=== PATIENT | female | born 1965 | race Caucasian/White ===

== ENCOUNTER → 2020-10-06 14:57 | Outpatient (CLI) | payer OTHER, SELFPAY ==
--- NOTE | ~2020-10-06 | MM_ITS ---
EXAMINATION: MM screening [facility] BI w dulce HISTORY: Screening mammogram TECHNIQUE: Craniocaudal and mediolateral oblique 3-D tomosynthesis images were obtained and synthetic 2-D images were generated. CAD analysis was submitted and interpreted. COMPARISON: 02/16/2017, 09/24/2015, 09/22/2015 BREAST PARENCHYMAL COMPOSITION: There are scattered areas of fibroglandular density. FINDINGS: There is no evidence of suspicious mass, calcification, or architectural distortion to sugg est malignancy in either breast. There has been no suspicious interval change. IMPRESSION: 1. No mammographic evidence of malignancy. 2. Recommend routine screening mammography in one year. BI-RADS Category 1: Negative Reviewed, dictated and finalized at location A. [employer]
== END ==
PROVIDERS: PCP Internal Medicine; Visit Provider Obstetrics & Gynecology
DX: Z12.31 Encounter for screening mammogram for malignant neoplasm of breast (principal)
CPT/HCPCS: 77063; 77067

== ENCOUNTER → 2021-01-14 02:24 | Outpatient (CLI) | payer OTHER, SELFPAY ==
[2021-01-14 18:15] LABS: SARS-CoV-2 RNA PCR Negative
== END ==
PROVIDERS: PCP Nurse Practitioner Obstetrics & Gynecology; Visit Provider Internal Medicine Gastroenterology
DX: Z01.812 Encounter for preprocedural laboratory examination (principal); Z20.822 Contact with and (suspected) exposure to COVID-19
CPT/HCPCS: C9803; U0003; U0005

== ENCOUNTER 2021-01-17 00:40 | Day surgery (SDC) | payer OTHER, SELFPAY ==
[2021-01-06 13:54] VITALS: BMI 25.8
[2021-01-17 06:47] VITALS: BP 138/83; PULSE 75; RESP 18; TEMP 35.9; O2SAT 100
[2021-01-17] MEDS: LACTATED RINGERS 1,000 ML 150 ML IV CONT (06:52)
--- NOTE | 2021-01-17 07:49 | PM.HPGS ---
History of Present Illness History of Present Illness Consent: Risks, benefits, and alternatives have been discussed and questions answered. Patient agrees to proceed with procedure. Chief complaint: neoplasm screening Narrative: Beena Song is a 55 year old female here for screening colonoscopy Review of Systems Constitutional: Constitutional: Denies headache(s) and Denies weakness Eyes: Eyes: Denies blurry vision ENT: Reports Normal hearing present, Denies headache(s) and Denies neck pain Cardiovascular: Cardiovascular: Denies chest pain and Denies dyspnea Respiratory: Respiratory: Denies dyspnea Gastrointestinal: Gastrointestinal: Reports no additional gastrointestinal complaints Genitourinary: Genitourinary: Denies dysuria Musculoskeletal: Musculoskeletal: Denies neck pain Integumentary/Breasts: Skin/Breast: Denies dry skin Neurologic: Reports Normal hearing present, Denies headache(s) and Denies weakness Psychiatric: Psychiatric: Denies anxiety Endocrine: Endocrine: Denies change in body appearance Hematologic/Lymphatic: Hematologic/Lymphatic: Denies easy bleeding Allergic/Immunologic: Allergic/Immunologic: Denies urticaria [facility] Past Medical History Medical History (Updated 01/17/21 @ 07:49 by Vitaliy Pollard MD) Colon cancer screening Family History Family History Mother Patient's mother is Acute myocardial infarction Other Hypertension Social History Social History Smoking status: Never smoker Second hand tobacco smoke exposure: No Alcohol intake: never Substance use: never Substance use type: does not use Living arrangements: with family Spiritual care concerns: No Meds Home Medications and Allergies Home Medications Medication Instructions Recorded Confirmed Type Lactobacillus acidophilus and 1 cap PO DAILY 12/01/19 01/06/21 History rhamnosus 10 billion cell capsule aspirin 81 mg tablet,delayed 81 mg PO DAILY 12/01/19 01/06/21 History release cetirizine 10 mg tablet 10 mg PO DAILY 12/01/19 01/06/21 History cholecalciferol (vitamin D3) 50 50 mcg PO DAILY 12/01/19 01/06/21 History mcg (2,000 unit) capsule multivitamin 1 tablet PO DAILY 12/01/19 01/06/21 History epinephrine 0.3 mg/0.3 mL 0.3 mg IM ONCE #2 each 12/30/19 01/06/21 Rx injection, auto-injector estradiol 0.5 mg tablet 0.5 mg PO DAILY 12/06/20 01/06/21 History Calcium 600 + D(3) 1 cap PO DAILY 01/06/21 01/06/21 History Glucosamine Chondroitin 1,500 mg PO DAILY 01/06/21 01/06/21 History Natural Vitamin E 1 cap PO DAILY 01/06/21 01/06/21 History flaxseed oil 1,300 mg PO DAILY 01/06/21 01/06/21 History vitamin B complex 1 cap PO DAILY 01/06/21 01/06/21 History Allergies Allergy/AdvReac Type Severity Reaction Status Date / Time black pepper Allergy Severe Dyspnea / Verified 01/17/21 06:44 SOB pepper (genus Capsicum) Allergy Severe Dyspnea / Verified 01/17/21 06:44 SOB codeine Allergy Intermediate Vomiting Verified 01/17/21 06:44 Vital Signs Vital Signs - 24 hr 01/17/21 06:47 Temperature 96.6 F L Pulse Rate 75 Respiratory Rate 18 Blood Pressure 138/83 Pulse Oximetry 100 Exam Const: General: comfortable and no acute distress HENMT: General nose exam: Normal nares present Eyes: General: appearance normal, both eyes and all related structures Neck: Neck: no JVD Resp: Auscultation: clear to auscultation bilaterally Cardio: Rate: regular rate Rhythm: regular rhythm GI: Inspection: non-distended GI Palp: Yes Soft to palpation Skin: General skin exam: normal color Neuro: General: gait normal Speech: normal speech Extrem: General: normal to inspection Psych: Mental Status: mental status grossly normal Assessment and Plan Assessment and plan (1) Colon cancer screening: Code(s): Z12.11 -
--- NOTE | 2021-01-17 07:50 | WPDANESEPPF ---
Anes - Initial Pre Proc Eval Procedure: Operation Date: 01/17/21 08:00 Proposed Procedures p Screening Colonoscopy - Vitaliy Pollard MD Date/Time: 01/17/21 07:50 Surgeon: Vitaliy Pollard MD Pre Op Diagnosis: neoplasm screening Patient Data Age: 55 Gender: F Height: 1.57 m Weight: 66.9 kg Last Vital Signs Temp 35.9 C L 01/17/21 06:47 Pulse 75 01/17/21 06:47 Resp 18 01/17/21 06:47 BP 138/83 01/17/21 06:47 Pulse Ox 100 01/17/21 06:47 Allergies Allergy/AdvReac Type Severity Reaction Status Date / Time black pepper Allergy Severe Dyspnea / Verified 01/17/21 06:44 SOB pepper (genus Capsicum) Allergy Severe Dyspnea / Verified 01/17/21 06:44 SOB codeine Allergy Intermediate Vomiting Verified 01/17/21 06:44 Home Medications Medication Instructions Recorded Confirmed Type Lactobacillus acidophilus and 1 cap PO DAILY 12/01/19 01/06/21 History rhamnosus 10 billion cell capsule aspirin 81 mg tablet,delayed 81 mg PO DAILY 12/01/19 01/06/21 History release cetirizine 10 mg tablet 10 mg PO DAILY 12/01/19 01/06/21 History cholecalciferol (vitamin D3) 50 50 mcg PO DAILY 12/01/19 01/06/21 History mcg (2,000 unit) capsule multivitamin 1 tablet PO DAILY 12/01/19 01/06/21 History epinephrine 0.3 mg/0.3 mL 0.3 mg IM ONCE #2 each 12/30/19 01/06/21 Rx injection, auto-injector estradiol 0.5 mg tablet 0.5 mg PO DAILY 12/06/20 01/06/21 History Calcium 600 + D(3) 1 cap PO DAILY 01/06/21 01/06/21 History Glucosamine Chondroitin 1,500 mg PO DAILY 01/06/21 01/06/21 History Natural Vitamin E 1 cap PO DAILY 01/06/21 01/06/21 History flaxseed oil 1,300 mg PO DAILY 01/06/21 01/06/21 History vitamin B complex 1 cap PO DAILY 01/06/21 01/06/21 History Patient hx anesthesia problems: none Family hx anesthesia problems: none PMFSH Past Medical History Medical History (Updated 01/17/21 @ 07:49 by Vitaliy Pollard MD) Colon cancer screening Family History Family History Mother Patient's mother is Acute myocardial infarction Other Hypertension Social History Social History Smoking status: Never smoker Second hand tobacco smoke exposure: No Alcohol intake: never Substance use: never Substance use type: does not use Living arrangements: with family Spiritual care concerns: No Anes - Eval Final PreProcedure Day of Procedure 01/17/21 07:50 Patient weight: overweight Heart: regular rate and rhythm Lungs: clear to auscultation and normal air movement Airway: Mallampati scale class II Neurological: alert and oriented Last oral intake: >/= 8 hours ASA classification: II Emergent: no Anesthetic plan: proceed Anesthesia type and monitoring: general GIVS Informed Consent: The patient's anesthetic plan and its attendant risks and benefits were discussed with the patient/family/POA. Questions were solicited and answers provided to the satisfaction of the patient/family/POA.
[2021-01-17 08:15] VITALS: BP 87/49; PULSE 71; RESP 19; O2SAT 95
[2021-01-17 08:25] VITALS: BP 95/54; PULSE 68; RESP 20; O2SAT 96
[2021-01-17 08:35] VITALS: BP 103/60; PULSE 68; RESP 17; O2SAT 97
== END 2021-01-17 08:58 | disposition home or self-care (01) ==
PROVIDERS: PCP Internal Medicine; Visit Provider Internal Medicine Gastroenterology
PROC: 0DJD8ZZ Inspection of Lower Intestinal Tract, Via Natural or Artificial Opening Endoscopic (ICD-10-PCS; CPT 45378; principal; 2021-01-17 08:00)
DX: Z12.11 Encounter for screening for malignant neoplasm of colon (principal); K57.30 Diverticulosis of large intestine without perforation or abscess without bleeding; Z79.82 Long term (current) use of aspirin
CPT/HCPCS: 45378; C9803; J2704; J7120; U0003; U0005

== ENCOUNTER → 2021-01-28 10:42 | Outpatient (CLI) | payer OTHER, SELFPAY ==
--- NOTE | ~2021-01-28 | XR_ITS ---
EXAMINATION: XR abdomen/kub 1V EXAM DATE: 01/28/2021 11:05 INDICATION: intrauterine device check. TECHNIQUE: Frontal projection(s) of the abdomen for interpretation, frontal projection pelvis. FINDINGS: There are cholecystectomy clips. There is expected amount of colonic stool and gas. No s mall bowel dilation, nonobstructive bowel gas pattern. Left mid abdominal calcification probably too far lateral to be nephrolithiasis. There is no organomegaly suspected. The bones are unremarkable . IMPRESSION: No IUD identified in abdomen or pelvis. Reviewed, dictated and finalized at location B.
--- NOTE | ~2021-01-28 | XR_ITS ---
EXAMINATION: XR chest 1V 01/28/2021 11:05 INDICATION: Dyspnea PROCEDURE: PA view of the chest COMPARISON: 12/27/2015 FINDINGS: The lungs are clear. The cardiomediastinal silhouette is within normal limits. There are no pleural effusions. There is no pneumothorax suspected. IMPRESSION: 1: NO ACUTE CARDIOPULMONARY DISEASE. Reviewed, dictated and finalized at location A.
== END ==
PROVIDERS: Visit Provider Nurse Practitioner Obstetrics & Gynecology
DX: Z30.431 Encounter for routine checking of intrauterine contraceptive device (principal)
CPT/HCPCS: 71045; 74018

== ENCOUNTER → 2021-06-02 14:58 | Outpatient (CLI) | payer OTHER, SELFPAY ==
--- NOTE | ~2021-06-02 | XR_ITS ---
EXAMINATION: XR ankle RT min 3V INDICATION: Right ankle pain and swelling TECHNIQUE: Four views of the ankle are obtained. COMPARISON: None available FINDINGS: Bone alignment is normal. There is no fracture. The soft tissues are unremarkable. Posterio r and plantar calcaneal enthesophytes are noted. IMPRESSION: 1. No acute osseous abnormality. Reviewed, dictated and finalized at location A.
== END ==
PROVIDERS: PCP Internal Medicine; Visit Provider Physician Assistant
DX: M25.571 Pain in right ankle and joints of right foot (principal)
CPT/HCPCS: 73610

== ENCOUNTER → 2022-03-20 14:21 | Outpatient (CLI) | payer OTHER, SELFPAY ==
--- NOTE | ~2022-03-20 | MM_ITS ---
EXAMINATION: MM screening [facility] BI w dulce HISTORY: Screening mammogram TECHNIQUE: Craniocaudal and mediolateral oblique 3-D tomosynthesis images were obtained and synthetic 2-D images were generated. CAD analysis was submitted and interpreted. COMPARISON: 10/06/2020, 02/16/2017, 09/24/2015, 09/22/2015 BREAST PARENCHYMAL COMPOSITION: There are scattered areas of fibroglandular density. FINDINGS: There is no suspicious mass, calcification, or architectural distortion to suggest malignan cy in either breast. There has been no suspicious interval change. IMPRESSION: 1. No mammographic evidence of malignancy. 2. Recommend routine screening mammography in one year. BI-RADS Category 1: Negative Reviewed, dictated and finalized at location A.
== END ==
PROVIDERS: PCP Internal Medicine; Visit Provider Nurse Practitioner Obstetrics & Gynecology
DX: Z12.31 Encounter for screening mammogram for malignant neoplasm of breast (principal)
CPT/HCPCS: 77063; 77067